=== PATIENT | male | born 1985 | race Caucasian/White ===

== ENCOUNTER 2018-11-26 18:39 | Inpatient (IN) | payer MEDICAID, OTHER ==
--- NOTE | 2018-11-26 19:31 | RAD ---
PORTABLE CHEST ONE VIEW: 11/26/18 at 7:17 p.m. HISTORY: DKA COMPARISON: Comparison made with exam of 10/04/18. The heart size is normal. The lungs are well expanded without focal areas of consolidation, pneumothoraces or pleural effusions. IMPRESSION: No radiographic evidence of acute cardiopulmonary process. POS: H
[2018-11-26 19:34] LABS: #Lymphocytes 2.1 thou/uL (1.20-3.40); #Monocytes 1.4 thou/uL (0.11-0.59); #Neutrophils 13.5 thou/uL (1.40-6.50); %Basophils 0.1 % (0.0-1.0); %Eosinophils 0.2 % (0.0-10.0); %Lymphocytes 12.4 % (21.0-51.0); %Monocytes 8.3 % (0.0-10.0); %Neutrophils 78.9 % (42.0-75.0); Hemoglobin 11.8 g/dL (14.0-18.0); Mean Corpuscular HGB CONC 34.8 g/dL (32.0-36.0); Mean Corpuscular Hemoglobin 31.1 pg (27.0-31.0); Mean Corpuscular Volume 89.4 fL (78.0-98.0); Mean Platelet Volume 7.2 fL (7.4-10.4); Platelet Count 217 thou/uL (130-400); RBC Distribution Width 12.3 % (11.5-14.5); Red Blood Cell (RBC) Count 3.79 mill/uL (4.70-6.10); White Blood Cell (WBC) Count 17.1 thou/uL (4.8-10.8)
[2018-11-26 19:50] LABS: ALT (SGPT) 11 U/L (8-55); AST (SGOT) 14 U/L (5-34); Alkaline Phosphatase 144 U/L (40-150); Anion Gap 22 mmol/L (10-20); BUN (Urea Nitrogen) 32 mg/dL (8.9-20.6); Bilirubin, Total 0.4 mg/dL (0.2-1.2); Calc. Creatinine Clearance 0 mL/min (70-130); Calcium 8.9 mg/dL (7.8-10.44); Carbon Dioxide 17 mmol/L (22-29); Chloride 99 mmol/L (98-107); Estimated GFR-MDRD 50; Globulin 2.7 g/dL (2.4-3.5); Glucose 227 mg/dL (70-105); Magnesium 2.5 mg/dL (1.6-2.6); Potassium 3.5 mmol/L (3.5-5.1); Protein, Total 6.7 g/dL (6.0-8.3); Sodium 134 mmol/L (136-145)
[2018-11-26] MEDS ORDERED: Promethazine HCl 25 MG/ML VIAL ONE (20:00)
[2018-11-26] MEDS ORDERED: Ketorolac Tromethamine 30 MG/ML VIAL ONE (20:00)
[2018-11-26 20:20] LABS: Phosphorus 1.7 mg/dL (2.3-4.7)
[2018-11-26] MEDS ORDERED: Potassium Chloride 40 MEQ in Sodium Chloride 0.9% 250 ML 250 ML IVPB SCH (20:45)
[2018-11-26 22:50] LABS: Bilirubin Moderate (Negative); Blood, Urine Negative (Negative); Clarity CLEAR (Clear); Glucose, Urine (Dipstick) >=1000 mg/dL (Negative); Leukocyte Negative (Negative); Nitrite Negative (Negative); Protein, Urine (Dipstick) Trace mg/dL (Neg-Trace); Specific Gravity, Urine 1.023 (1.002-1.036); Urobilinogen 0.2 mg/dL (0.2-1.0)
[2018-11-26] MEDS ORDERED: Ondansetron ODT 4 MG TAB PO PRN (22:56)
[2018-11-26] MEDS ORDERED: CCU Electrolyte Replacement 1 EACH IVPB ONE (22:56)
[2018-11-26] MEDS ORDERED: Acetaminophen 325 MG TAB PO PRN (22:56)
[2018-11-26] MEDS ORDERED: Dextrose 5 %-0.45 % NaCl 1,000 ML IV PRN (22:56)
[2018-11-26] MEDS ORDERED: Ondansetron PF 4 MG/2 ML Vial IVP PRN (22:56)
[2018-11-26] MEDS ORDERED: D5 1/2 NS w/20 mEq KCL 1,000 ML IV PRN (22:56)
[2018-11-26] MEDS ORDERED: Sodium Chloride 0.9% 1,000 ML IV PRN ×4 (22:56)
[2018-11-26] MEDS ORDERED: NS 0.9% w/ 20 MEQ KCL 1,000 ML IV PRN ×2 (22:56)
[2018-11-26] MEDS ORDERED: HUMULIN R 100 UNITS in Sodium Chloride 0.9% 100 ML IVPB SCH (23:00)
[2018-11-26] MEDS ORDERED: Magnesium Oxide 400 MG TAB PO PRN ×2 (23:07)
[2018-11-26] MEDS ORDERED: Magnesium 2 GM/NS 0.9% 100 ML 2 GM in Premix Bag 1 BAG IVPB PRN (23:07)
[2018-11-26] MEDS ORDERED: CCU ELECTROLYTE REPLACEMENT PROTOCOL FS PRN (23:07)
[2018-11-26] MEDS ORDERED: Potassium Phosphate 12 MMOL in Sodium Chloride 0.9% 250 ML 250 ML IV PRN (23:07)
[2018-11-26] MEDS ORDERED: Potassium Chloride 40 MEQ in Sodium Chloride 0.9% 250 ML 250 ML IVPB PRN (23:07)
[2018-11-26] MEDS ORDERED: Potassium Phosphate 9 MMOL in Sodium Chloride 0.9% 100 ML IVPB PRN (23:07)
[2018-11-26] MEDS ORDERED: Potassium Phosphate 15 MMOL in Sodium Chloride 0.9% 250 ML 250 ML IV PRN (23:07)
[2018-11-26] MEDS ORDERED: Potassium Chloride 20 MEQ TAB PO PRN (23:07)
[2018-11-26] MEDS ORDERED: Potassium Chloride 40 MEQ in Premix Bag 1 BAG IVPB PRN (23:07)
[2018-11-26 23:40] LABS: Anion Gap 16 mmol/L (10-20); BUN (Urea Nitrogen) 23 mg/dL (8.9-20.6); Calc. Creatinine Clearance 0 mL/min (70-130); Calcium 7.6 mg/dL (7.8-10.44); Carbon Dioxide 16 mmol/L (22-29); Chloride 105 mmol/L (98-107); Estimated GFR-MDRD 62; Glucose 283 mg/dL (70-105); Potassium 3.5 mmol/L (3.5-5.1); Sodium 133 mmol/L (136-145)
[2018-11-27 00:19] LABS: Magnesium 1.9 mg/dL (1.6-2.6)
[2018-11-27 00:23] LABS: Phosphorus 1.9 mg/dL (2.3-4.7)
[2018-11-27 03:16] LABS: #Lymphocytes 1.4 thou/uL (1.20-3.40); #Monocytes 0.9 thou/uL (0.11-0.59); #Neutrophils 8.9 thou/uL (1.40-6.50); %Basophils 0.1 % (0.0-1.0); %Eosinophils 0.1 % (0.0-10.0); %Lymphocytes 12.3 % (21.0-51.0); %Monocytes 8.1 % (0.0-10.0); %Neutrophils 79.4 % (42.0-75.0); Mean Corpuscular HGB CONC 34.5 g/dL (32.0-36.0); Mean Corpuscular Hemoglobin 31.3 pg (27.0-31.0); Mean Corpuscular Volume 90.6 fL (78.0-98.0); Mean Platelet Volume 7.2 fL (7.4-10.4); Platelet Count 189 thou/uL (130-400); Red Blood Cell (RBC) Count 3.21 mill/uL (4.70-6.10); White Blood Cell (WBC) Count 11.3 thou/uL (4.8-10.8)
[2018-11-27 03:31] LABS: Anion Gap 10 mmol/L (10-20); BUN (Urea Nitrogen) 21 mg/dL (8.9-20.6); Calc. Creatinine Clearance 0 mL/min (70-130); Calcium 7.8 mg/dL (7.8-10.44); Carbon Dioxide 22 mmol/L (22-29); Chloride 106 mmol/L (98-107); Estimated GFR-MDRD 64; Glucose 322 mg/dL (70-105); Potassium 3.4 mmol/L (3.5-5.1); Sodium 135 mmol/L (136-145)
--- NOTE | 2018-11-27 04:01 | HP ---
PRIMARY CARE DOCTOR: Out [facility] physician. CODE STATUS: Full code. TIME OF EVALUATION: 9:10 p.m. CHIEF COMPLAINT: Nausea, vomiting, abdominal pain. HISTORY OF PRESENT ILLNESS: This is a 33-year-old male patient with past medical history of diabetes. The patient came to the hospital after having severe abdominal pain, nausea, vomiting, unable to tolerate anything p.o. The symptoms were present for the past 2 days. No clear triggers. No alleviating factors. The patient reported that he has ran out of insulin, was not taking medications. REVIEW OF SYSTEMS: CONSTITUTIONAL: No fever or chills. Generalized weakness was reported. RESPIRATORY: No cough, sputum production, or shortness of breath. CARDIOVASCULAR: No chest pain or palpitations. GASTROINTESTINAL: The patient has some nausea and vomiting. No diarrhea. The patient reported abdominal pain. SOFTWARE CONTROLS ENGINEER: No dizziness, headache, or feeling lightheaded. GENITOURINARY: No burning on urination. EXTREMITIES: No leg swelling. All other systems were reviewed and negative except for the findings mentioned above. PAST MEDICAL HISTORY: Positive for DKA, diabetes type 1, neuropathy. PAST SURGICAL HISTORY: Appendectomy. PSYCH HISTORY: Anxiety and depression. SOCIAL HISTORY: No alcohol, no drugs. No smoking history. KNOWN ALLERGIES: Morphine. REPORTED MEDICATIONS: Hydroxyzine, Novolin R, gabapentin, and Levemir. PHYSICAL EXAMINATION: VITAL SIGNS: On presentation, blood pressure 119/67, heart rate 124, respiratory rate was 16, temperature 98.6, oxygen saturation was 100 on room air. GENERAL APPEARANCE: The patient is alert, oriented, reporting feels very weak. HEENT: Eyes, normal conjunctivae. Dry oral mucosa. Anicteric. No JVD. RESPIRATORY: Bilateral air entry. No rales or wheezes. Symmetric expansion. CARDIOVASCULAR: The patient is tachycardic. Regular rhythm. No murmurs, no gallops. No edema. ABDOMEN: Soft. Normal bowel sounds. MUSCULOSKELETAL: Baseline range of motion and strength. No tenderness. SKIN: Warm, intact. No pallor. No rash. No redness. Peripheral pulses are present. Capillary refill seems to be intact. NEURO: No evidence of any new focal weakness. Baseline speech. Cranial nerves seems to be intact. PSYCH: The patient has good mood. No anxiety. Optimal judgment. IMAGING: EKG home was not done. Chest x-ray was done, reviewed. The patient had no radiographic evidence of acute cardiopulmonary process. LABORATORY DATA: Labs were reviewed. The patient has white count of 17.1, hemoglobin 11.8, MCV 89.4, platelet count 217. Sodium 134, potassium 3.5, chloride 99, carbon dioxide 17, anion gap 22, BUN 32, creatinine 1.62, we do not have the previous creatinine to compare. GFR 50, glucose 227 with lactic acid of 2, calcium , phosphorus 1.7, magnesium 2.5. Beta hydroxybutyrate 2.9. Urine was done and the patient had a positive urine for ketonuria. ASSESSMENT AND PLAN: The patient will be placed in the hospital with following medical problems: 1. Diabetic ketoacidosis. The patient presented with diabetic ketoacidosis, receiving diabetic ketoacidosis protocol with aggressive hydration, electrolyte replacement. 2. Hyponatremia. Sodium 134, this is mild. We will replace electrolytes as needed. 3. Acute kidney injury. The patient has BUN of 32, creatinine 1.6. We do not have the previous values but creatinine is already improving after aggressive hydration, is likely secondary to dehydration. We will monitor kidney function. We will treat accordingly. 4. Low phosphorus, initial value 1.7. We will replace electrolytes as needed. 5. Hypocalcemia with calcium of 7.6. We will replace electrolytes as needed. 6. Diabetes type 1, that is uncontrolled. Restart home medications once diabetic ketoacidosis is resolved. 7. Deep venous thrombosis prophylaxis. Job ID: [id number]
[2018-11-27 07:44] LABS: Anion Gap 13 mmol/L (10-20); BUN (Urea Nitrogen) 16 mg/dL (8.9-20.6); Calc. Creatinine Clearance 0 mL/min (70-130); Calcium 8.2 mg/dL (7.8-10.44); Carbon Dioxide 19 mmol/L (22-29); Chloride 108 mmol/L (98-107); Estimated GFR-MDRD 85; Glucose 91 mg/dL (70-105); Potassium 3.7 mmol/L (3.5-5.1); Sodium 136 mmol/L (136-145)
[2018-11-27] MEDS ORDERED: hydrALAZINE 20 MG/ML VIAL SLOW IVP PRN (09:14)
[2018-11-27] MEDS ORDERED: Eucerin (Mineral Oil/Petrolatum,White) 30 gm Jar TOP PRN (09:14)
[2018-11-27] MEDS ORDERED: Dextrose 50% Abboject 50 ML SYRINGE SLOW IVP PRN (09:14)
[2018-11-27] MEDS ORDERED: Diabetic Tussin 200 MG/10 ML UDCUP PO PRN (09:14)
[2018-11-27] MEDS ORDERED: Cepastat Lozenges 1 LOZ PO PRN (09:14)
[2018-11-27] MEDS ORDERED: Artificial Tears 18 DROP/0.9 ML EA EYE PRN (09:14)
[2018-11-27] MEDS ORDERED: Dextrose 5% in Water 1,000 ML IV PRN (09:14)
[2018-11-27] MEDS ORDERED: Acetaminophen 500 MG TAB PO PRN (09:14)
[2018-11-27] MEDS ORDERED: Bisacodyl 5 MG TAB PO PRN (09:14)
[2018-11-27] MEDS ORDERED: Loratadine 10 MG TAB PO PRN (09:14)
[2018-11-27] MEDS ORDERED: HumaLOG 300 UNITS/3 ML VIAL SC PRN (09:14)
[2018-11-27] MEDS ORDERED: Senokot S 8.6-50 MG TAB PO PRN (09:14)
[2018-11-27] MEDS ORDERED: Sodium Chloride 0.65% Nasal 44 ML BOT EA NARE PRN (09:14)
[2018-11-27] MEDS ORDERED: Loperamide HCl 2 MG CAP PO PRN (09:14)
[2018-11-27] MEDS ORDERED: Zolpidem Tartrate 5 MG TAB PO PRN (09:14)
[2018-11-27] MEDS ORDERED: Enoxaparin Sodium 40 MG/0.4 ML SYRINGE ONE (09:24)
[2018-11-27] MEDS: Insulin Glargine 10 UNITS in Pre-Filled Syringe 1 EACH SC SCH (10:24)
[2018-11-27] MEDS: Enoxaparin Sodium 40 MG/0.4 ML SYRINGE SC SCH (10:24)
--- NOTE | 2018-11-27 11:53 | PDOC.PN ---
- Subjective Encounter Start Date: 11/27/18 Encounter Start Time: 08:00 -: old records requested/rev pt has nausea but no vomiting, eating, no abdominal pain, no fever, he ran out insulin that lead to DKA, now resolved - Objective Resuscitation Status - Order Detail: 11/26/18 22:56 Resuscitation Status Routine Resuscitation Status: FULL: Full Resuscitation MAR Reviewed: Yes Vital Signs & Weight: Vital Signs (12 hours) Temp Pulse Resp BP Pulse Ox 11/27/18 10:00 98.2 F 80 20 119/77 98 Result Diagrams: 11/27/18 02:51 11/27/18 07:17 Additional Labs: Accuchecks 11/27/18 11/27/18 11/27/18 09:04 07:58 07:04 POC Glucose 212 H 210 H 99 11/27/18 11/27/18 11/27/18 06:02 05:03 04:11 POC Glucose 107 161 H 206 H 11/27/18 11/27/18 11/27/18 03:06 02:08 01:05 POC Glucose 309 H 323 H 245 H 11/27/18 11/26/18 11/26/18 00:07 22:15 20:48 POC Glucose 231 H 255 H 219 H 11/26/18 18:57 POC Glucose 235 H EKG Reviewed by me: Yes (nsr) Phys Exam - Physical Examination Constitutional: NAD HEENT: PERRLA, moist MMs, sclera anicteric Neck: no JVD, supple Respiratory: no wheezing, no rales, no rhonchi Cardiovascular: RRR, no significant murmur, no rub Gastrointestinal: soft, non-tender, no distention, positive bowel sounds Musculoskeletal: no edema, pulses present Neurological: non-focal, normal sensation, moves all 4 limbs Lymphatic: no nodes Psychiatric: normal affect, A&O x 3 Skin: no rash, normal turgor Dx/Plan (1) Acute kidney injury Code(s): N17.9 - ACUTE KIDNEY FAILURE, UNSPECIFIED Status: Resolved (2) DKA, type 1 Code(s): E10.10 - TYPE 1 DIABETES MELLITUS WITH KETOACIDOSIS WITHOUT COMA Status: Resolved (3) Hypokalemia Code(s): E87.6 - HYPOKALEMIA Status: Acute (4) Hyponatremia Code(s): E87.1 - HYPO-OSMOLALITY AND HYPONATREMIA Status: Acute (5) Hypophosphatemia Code(s): E83.39 - OTHER DISORDERS OF PHOSPHORUS METABOLISM Status: Acute (6) Anemia, normocytic normochromic Code(s): D64.9 - ANEMIA, UNSPECIFIED Status: Chronic (7) Diabetes type 1, controlled Code(s): E10.9 - TYPE 1 DIABETES MELLITUS WITHOUT COMPLICATIONS Status: Chronic - Plan cont current plan of care * will downgrade to medical floor * start lantus insulin * humalog as per sliding scale * medication reviewed as below * symptomatic treatment * repeat labs tomorrow. Review of Systems - Review of Systems ENT: negative: Ear Pain, Ear Discharge, Nose Pain, Nose Discharge, Nose Congestion, Mouth Pain, Mouth Swelling, Throat Pain, Throat Swelling, Other Respiratory: negative: Cough, Dry, Shortness of Breath, Hemoptysis, SOB with Excertion, Pleuritic Pain, Sputum, Wheezing Cardiovascular: negative: chest pain, palpitations, orthopnea, paroxysmal nocturnal dyspnea, edema, light headedness, other Gastrointestinal: negative: Nausea, Vomiting, Abdominal Pain, Diarrhea, Constipation, Melena, Hematochezia, Other Genitourinary: negative: Dysuria, Frequency, Incontinence, Hematuria, Retention , Other Musculoskeletal: negative: Neck Pain, Shoulder Pain, Arm Pain, Back Pain, Hand Pain, Leg Pain, Foot Pain, Other Skin: negative: Rash, Lesions, Dawson, Bruising, Other - Medications/Allergies Allergies/Adverse Reactions: Allergies Allergy/AdvReac Type Severity Reaction Status Date / Time morphine Allergy Verified 11/26/18 20:36 Medications: Current Medications Acetaminophen (Tylenol) 650 mg PO Q4H PRN PRN Reason: Headache/Fever/Mild Pain (1-3) Artificial Tears (Tears Naturale) 2 drop EA EYE PRN PRN PRN Reason: Dry Eyes Bisacodyl (Dulcolax) 10 mg PO DAILYPRN PRN PRN Reason: Constipation Dextrose/Water (Dextrose 50%) 25 gm SLOW IVP PRN PRN PRN Reason: Hypoglycemia Enoxaparin Sodium (Lovenox) 40 mg SC 0900 KIMBERLY Last Admin: 11/27/18 10:24 Dose: Not Given Glucagon (Glucagon) 1 mg IM PRN PRN PRN Reason: Hypoglycemia Guaifenesin (Robitussin Sf) 200 mg PO Q4H PRN PRN Reason: Cough Hydralazine HCl (Apresoline) 10 mg SLOW IVP Q4H PRN PRN Reason: SBP > 180 and HR < 70 Insulin Glargine 10 units/ (Miscellaneous Medication) 0.1 mls @ 0 mls/hr SC HS KIMBERLY Insulin Glargine 10 units/ (Miscellaneous Medication) 0.1 mls @ 0 mls/hr SC QAM [facility] Last Admin: 11/27/18 10:24 Dose: Not Given Dextrose/Water (D5w) 1,000 mls @ 0 mls/hr IV .Q0M PRN PRN Reason: Hypoglycemia Insulin Human Lispro (Humalog) 0 units SC .AGGRESSIVE SLIDING PRN PRN Reason: Aggressive Correctional Scale Insulin Human Lispro (Humalog) 0 units SC .BEDTIME SLIDING SC PRN PRN Reason: Bedtime Correctional Scale Loperamide HCl (Imodium) 2 mg PO PRN PRN PRN Reason: Diarrhea/Loose Stools Loratadine (Claritin) 10 mg PO DAILYPRN PRN PRN Reason: Sinus Symptoms Mineral Oil/White Petrolatum (Eucerin Cream) 0 gm TOP BIDPRN PRN PRN Reason: Dry Skin Ondansetron HCl (Zofran Odt) 4 mg PO Q6H PRN PRN Reason: Nausea/Vomiting Ondansetron HCl (Zofran) 4 mg IVP Q6H PRN PRN Reason: Nausea/Vomiting Senna/Docusate Sodium (Senokot S) 2 tab PO BIDPRN PRN PRN Reason: Constipation Sodium Chloride ([place] Nasal [place] 0.65%) 0 ml EA NARE QIDPRN PRN PRN Reason: Nasal Congestion Throat Lozenges (Cepastat Lozenges) 1 cookie PO Q2H PRN PRN Reason: Sore Throat Zolpidem Tartrate (Ambien) 5 mg PO HSPRN PRN PRN Reason: Insomnia
[2018-11-27] MEDS: HumaLOG 300 UNITS/3 ML VIAL SC PRN ×3 (12:06→20:46)
[2018-11-27 12:20] VITALS: BMI 20.3
[2018-11-27] MEDS ORDERED: Insulin Glargine 10 UNITS in Pre-Filled Syringe 1 EACH SC SCH (21:00)
[2018-11-28 04:47] LABS: Hemoglobin A1c 11.1 % (4.0-6.0)
[2018-11-28 05:07] LABS: Phosphorus 2.7 mg/dL (2.3-4.7)
[2018-11-28] MEDS: Enoxaparin Sodium 40 MG/0.4 ML SYRINGE SC SCH (08:59)
[2018-11-28] MEDS: Insulin Glargine 10 UNITS in Pre-Filled Syringe 1 EACH SC SCH (08:59)
[2018-11-28] MEDS: HumaLOG 300 UNITS/3 ML VIAL SC PRN (12:05)
--- NOTE | 2018-11-28 12:05 | DIS ---
DATE OF ADMISSION: 11/26/2018 DATE OF DISCHARGE: 11/28/2018 PRIMARY CARE PHYSICIAN: [facility] Call Admission. DISCHARGE DISPOSITION: Home. PRIMARY DISCHARGE DIAGNOSES: 1. Diabetic ketoacidosis, resolved. 2. Acute kidney failure due to volume depletion, resolved. 3. Abnormal electrolytes with hypokalemia, hyponatremia, and hypophosphatemia, corrected. SECONDARY DISCHARGE DIAGNOSES: 1. Normocytic anemia. 2. Type 1 diabetes. PRIMARY PROCEDURE/OPERATION: None. RADIOLOGICAL INVESTIGATION: Chest x-ray, normal. SIGNIFICANT LABORATORY DATA: WBC 11.3, hemoglobin 10.0, and platelet 189. Phosphorus 2.7, magnesium 2.0. Hemoglobin A1c 11.1. Sodium 136, creatinine 1.02, potassium 3.7. Urinalysis showed glucosuria and ketonuria. Serum ketones 1.0. DISCHARGE MEDICATIONS: The patient will continue his, 1. Gabapentin 300 mg p.o. t.i.d. 2. Levemir insulin 10 units subcu b.i.d. 3. Novolin R insulin as per sliding scale. CONTRAINDICATION: None. CODE STATUS: Full code. INPATIENT CRAB PICKER: None. ALLERGIES: MORPHINE. DISCHARGE PLAN: Posthospital, the patient will make appointment with primary care physician in 1 or 2 weeks. HOSPITAL COURSE: A 33-year-old male with above-mentioned medical problem, who was admitted by Dr. Joel on November 27, 2018. Please see his H and P for further details. The patient was admitted for DKA. The patient also had significant volume depletion, acute kidney injury, and abnormal electrolytes that was corrected while in the hospital. The patient was admitted to intermediate care unit where we treated him with DKA protocol order. Subsequently, the patient was transferred to medical floor. The patient did very well while in hospital. The patient is given education about diet and compliance with medication. The patient is currently stable for discharge. PHYSICAL EXAMINATION: GENERAL: The patient is seen and examined at bedside today. The patient is currently alert, awake, in no obvious acute distress. VITAL SIGNS: Currently, temperature 97.8, pulse 92, respiratory rate 18, saturation 98% on room air, blood pressure 116/80, weight 130 pounds. HEENT: Head: Normocephalic and atraumatic. Eyes: Pupils round and reactive to light. Extraocular muscle intact. ENT: Oropharynx within normal limits. Moist mucous membranes. NECK: Supple. No JVD. No thyromegaly. No carotid bruit. LUNGS: Clear to auscultation without any rhonchi or rales. CARDIAC: S1 and S2, regular without any murmur. ABDOMEN: Soft and benign. EXTREMITIES: No edema. NEUROLOGIC: Nonfocal examination. DISCHARGE CONDITION: Overall, the patient is medically stable for discharge today. Job ID: [id number]
[2018-11-28 16:39] VITALS: BP 111/75; TEMP 98.9
== END 2018-11-28 17:22 | disposition home or self-care (01) | DRG 638 ==
LOC: ERS 18:39 → ERHOLD 19:33 → SURG A 11-27 10:01
PROVIDERS: ADMIT Hospitalist; ATTEND Hospitalist
DX: E10.10 Type 1 diabetes mellitus with ketoacidosis without coma (principal); E87.1 Hypo-osmolality and hyponatremia; N17.9 Acute kidney failure, unspecified; F41.9 Anxiety disorder, unspecified; F32.9 Major depressive disorder, single episode, unspecified; Z90.49 Acquired absence of other specified parts of digestive tract; E10.40 Type 1 diabetes mellitus with diabetic neuropathy, unspecified; E87.6 Hypokalemia; D64.9 Anemia, unspecified; E86.0 Dehydration; E83.39 Other disorders of phosphorus metabolism; E83.51 Hypocalcemia; Z88.5 Allergy status to narcotic agent
CPT/HCPCS: 36415; 36416; 71045; 80053; 81003; 82010; 83036; 83605; 83735; 84100; 85025; J1650; J1815; J1825; J1885; J2550; J3480; J7050; Q0162